=== PATIENT | female | born 1970 | race American Indian/Alaskan Native ===

== ENCOUNTER 2021-12-09 11:37 | Emergency (ER) | payer SELFPAY ==
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
[2021-12-09] MEDS: ONDANSETRON 4 MG/2 ML INJ IV ONE (13:47)
[2021-12-09] MEDS: fentaNYL 100 MCG/2 ML INJ IV ONE (13:47)
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
[2021-12-09 17:21] VITALS: BP 156/94
== END 2021-12-09 17:20 | disposition home or self-care (01) ==
LOC: ED 11:37
DX: S16.1XXA Strain of muscle, fascia and tendon at neck level, initial encounter (principal); S09.90XA Unspecified injury of head, initial encounter; V89.2XXA Person injured in unspecified motor-vehicle accident, traffic, initial encounter; Y93.89 Activity, other specified; Y92.89 Other specified places as the place of occurrence of the external cause; Y99.8 Other external cause status
CPT/HCPCS: 70450; 72141; 96374; 96375; 99284; J2405; J3010